=== PATIENT | male | born 1980 | race African-American/Black ===

== ENCOUNTER 2020-05-13 21:24 | Inpatient (IN) | payer SELFPAY ==
[~2020-05-13] VITALS: Ht 177.8 cm; Wt 90.7 kg
[2020-05-13 22:19] LABS: BASO # 0.1 x10^3/uL (0.0-0.2); BASO % 1 % (0-3); EOS # 0.2 x10^3/uL (0.0-0.7); EOS % 3 % (0-3); HEMOGLOBIN 13.8 g/dL (13.0-17.5); LYMPH # 2.3 x10^3/uL (1.0-4.8); LYMPH % 28 % (24-48); MEAN CORPUSCULAR HEMOGLOBIN 28 pg (25-35); MEAN CORPUSCULAR HGB CONC 34 g/dL (31-37); MEAN CORPUSCULAR VOLUME 83 fL (79-100); MONO # 0.7 x10^3/uL (0.0-1.1); MONO % 9 % (0-9); NEUT # 4.9 x10^3/uL (1.8-7.7); NEUT % 60 % (31-73); PLATELET COUNT 330 x10^3/uL (140-400); RED BLOOD COUNT 4.94 x10^6/uL (4.30-5.70); RED CELL DISTRIBUTION WIDTH 13.9 % (11.5-14.5); WHITE BLOOD COUNT 8.1 x10^3/uL (4.0-11.0)
[2020-05-13 22:26] LABS: CALCIUM 9.6 mg/dL (8.5-10.1); CREATININE 1.4 mg/dL (0.7-1.3); GFR 67.6; POTASSIUM 3.8 mmol/L (3.5-5.1)
[2020-05-13 22:32] LABS: ALBUMIN 3.9 g/dL (3.4-5.0); TOTAL BILIRUBIN 0.2 mg/dL (0.2-1.0); TOTAL PROTEIN 7.7 g/dL (6.4-8.2)
[2020-05-13] MEDS ORDERED: MORPHINE SULFATE 4 MG/ML VIAL. ONE (22:55)
[2020-05-13] MEDS ORDERED: MORPHINE SULFATE 4 MG/ML VIAL. IV ONE (23:30)
--- NOTE | 2020-05-13 23:45 | PHYS DOC ---
Past Medical History Past Medical History: Asthma, Hypertension Additional Past Medical Histor: DDD Past Surgical History: Other Additional Past Surgical Histo: L5-S1, CERVICAL FUSION Smoking Status: Never Smoker Alcohol Use: None General Adult EDM: Chief Complaint: BACK PAIN OR INJURY HPI: HPI: Patient is a 39-year-old male past medical history of degenerative disc disease presents with a chief complaint of back pain. Patient states over the last several days he has had pain in his lumbar region that is become increasingly worse. Patient states he started to have bilateral lower extremity weakness -- left leg greater than his right. Patient states he has associated numbness and tingling with abnormal sensation in his bilateral legs and groin. Patient states today he urinated on himself 2 times today. Patient denies any loss of stool. Patient states back surgery in Aug 2017 at [facility]. He states postoperatively he has similar symptoms with require 1 month hospitalization.l. On exam patient appears to be having difficulty lifting and hold both his legs in the air. Patients left leg appears to be weaker than right. Patient's back pain is exacerbated with lifting his legs up in the air. Rectal exam done and tone is intact. Patient denies any IV Drug use. Patient presented by POV. He drove himself here. States he lives by [place] but was on his way home from a job interview when symptoms became worse. Review of Systems: Review of Systems: Constitutional: Denies fever or chills. [] Eyes: Denies change in visual acuity. [] HENT: Denies nasal congestion or sore throat. [] Respiratory: Denies cough or shortness of breath. [] Cardiovascular: Denies chest pain or edema. [] GI: Denies abdominal pain, nausea, vomiting, bloody stools or diarrhea. [] : Denies dysuria. [] Musculoskeletal: positive back pain Integument: Denies rash. [] Neurologic: Denies headache, positive lower extremity weakness, positive paresthesia. Endocrine: Denies polyuria or polydipsia. [] Lymphatic: Denies swollen glands. [] Psychiatric: Denies depression or anxiety. [] Heart Score: Risk Factors: Risk Factors: DM, Current or recent (<one month) smoker, HTN, HLP, family history of CAD, obesity. Risk Scores: Score 0 - 3: 2.5% MACE over next 6 weeks - Discharge Home Score 4 - 6: 20.3% MACE over next 6 weeks - Admit for Clinical Observation Score 7 - 10: 72.7% MACE over next 6 weeks - Early Invasive Strategies Current Medications: Current Medications Medications (Trade) Dose Ordered Sig/Robbin Start Time Stop Time Status Last Admin Dose Admin Lorazepam (Ativan Inj) 2 mg STK-MED ONCE 05/13/20 23:21 05/13/20 23:21 DC Morphine Sulfate (Morphine Sulfate) 4 mg STK-MED ONCE 05/13/20 22:55 05/13/20 22:55 DC Allergies: Allergies: Allergies Coded Allergies Type Severity Reaction Last Updated Verified levofloxacin Allergy Severe THROAT SWELLING 05/13/20 Yes ketorolac Allergy Intermediate Hives 05/13/20 Yes Physical Exam: PE: Constitutional: Well developed, well nourished, no acute distress, non-toxic appearance. [] HENT: Normocephalic, atraumatic, bilateral external ears normal, oropharynx moist, no oral exudates, nose normal. [] Eyes: PERRLA, EOMI, conjunctiva normal, no discharge. [] Neck: Normal range of motion, no tenderness, supple, no stridor. [] Cardiovascular:Heart rate regular rhythm, no murmur [] Lungs & Thorax: Bilateral breath sounds clear to auscultation [] Abdomen: Bowel sounds normal, soft, no tenderness, no masses, no pulsatile masses. [] Skin: Warm, dry, no erythema, no rash. [] Back: tenderness l4-l5 no step off or deformities, no CVA tenderness. [] Extremities: No tenderness, no cyanosis, no clubbing, ROM intact, no edema. [] Neurologic: Alert and oriented X 3,rectal exam normal [] Psychologic: Affect normal, judgement normal, mood normal. [] Current Patient Data: Labs: Laboratory Tests Test 05/13/20 21:35 White Blood Count 8.1 x10^3/uL (4.0-11.0) Red Blood Count 4.94 x10^6/uL (4.30-5.70) Hemoglobin 13.8 g/dL (13.0-17.5) Hematocrit 41.0 % (39.0-53.0) Mean Corpuscular Volume 83 fL (79-100) Mean Corpuscular Hemoglobin 28 pg (25-35) Mean Corpuscular Hemoglobin Concent 34 g/dL (31-37) Red Cell Distribution Width 13.9 % (11.5-14.5) Platelet Count 330 x10^3/uL (140-400) Neutrophils (%) (Auto) 60 % (31-73) Lymphocytes (%) (Auto) 28 % (24-48) Monocytes (%) (Auto) 9 % (0-9) Eosinophils (%) (Auto) 3 % (0-3) Basophils (%) (Auto) 1 % (0-3) Neutrophils # (Auto) 4.9 x10^3/uL (1.8-7.7) Lymphocytes # (Auto) 2.3 x10^3/uL (1.0-4.8) Monocytes # (Auto) 0.7 x10^3/uL (0.0-1.1) Eosinophils # (Auto) 0.2 x10^3/uL (0.0-0.7) Basophils # (Auto) 0.1 x10^3/uL (0.0-0.2) Sodium Level 142 mmol/L (136-145) Potassium Level 3.8 mmol/L (3.5-5.1) Chloride Level 105 mmol/L (98-107) Carbon Dioxide Level 28 mmol/L (21-32) Anion Gap 9 (6-14) Blood Urea Nitrogen 21 mg/dL (8-26) Creatinine 1.4 mg/dL (0.7-1.3) H Estimated GFR (Cockcroft-Gault) 67.6 BUN/Creatinine Ratio 15 (6-20) Glucose Level 103 mg/dL (70-99) H Calcium Level 9.6 mg/dL (8.5-10.1) Total Bilirubin 0.2 mg/dL (0.2-1.0) Aspartate Amino Transferase (AST) 28 U/L (15-37) Alanine Aminotransferase (ALT) 51 U/L (16-63) Alkaline Phosphatase 119 U/L (46-116) H C-Reactive Protein, Quantitative 3.9 mg/L (0-3.3) H Total Protein 7.7 g/dL (6.4-8.2) Albumin 3.9 g/dL (3.4-5.0) Albumin/Globulin Ratio 1.0 (1.0-1.7) Laboratory Tests 05/13/20 21:35 Laboratory Tests 05/13/20 21:35 Vital Signs: Vital Signs Date Time Temp Pulse Resp B/P (MAP) Pulse Ox O2 Delivery O2 Flow Rate FiO2 05/13/20 21:33 99.1 100 24 187/128 (147) 97 Room Air 99.1 EKG: EKG: [] Radiology/Procedures: Radiology/Procedures: [] Impression: IMPRESSION: 1. No acute fracture or malalignment of the thoracic or lumbar spine. 2. There is no high-grade central canal stenosis or neural foraminal narrowing. 3. There is no abnormal intrathecal enhancement. Electronically signed by: Pepe Duong MD (05/14/2020 1:18 AM) [facility] Course & Med Decision Making: Course & Med Decision Making Pertinent Labs and Imaging studies reviewed. (See chart for details) [] Patient was evaluated for chief complaint. Work up consisted of labs and MRI. Results reviewed and discussed with patient. Pain treated with multiple dose of morphine with some improvement. During MRI patient requested ativan. Post workup-- Nursing attempted to ambulate patient. Patient walked unassisted but states he felt like his legs were going to give ou t. After walking state pain is 10/10. Patient admitted to hospitalist. Dajuan Disclaimer: Dajuan Disclaimer: This electronic medical record was generated, in whole or in part, using a voice recognition dictation system. Departure Departure Impression: Primary Impression: Intractable back pain Additional Impression: Paresthesia Disposition: ADMITTED INPATIENT Condition: STABLE Referrals: NO PCP (PCP) Justicifation of Admission Dx: Justifications for Admission: Justification of Admission Dx: Yes Comments: Intractable Back Pain, Paresthesia CYNTHIA MCKINNEY I DO May 13, 2020 23:45
[2020-05-14] VITALS (7 sets, daily range): BP systolic 136–184; BP diastolic 85–109
[2020-05-14] MEDS ORDERED: GADOTERATE 7.5 MMOL/15ML VIAL. IVP ONE (00:30)
--- NOTE | 2020-05-14 01:21 | RAD ---
THORACIC SPINE WO/W CONTRAST, LUMBAR SPINE WO/W CONTRAST Clinical Indication: Reason: back pain saddle anesthesia / Comparison: None. TECHNIQUE: Routine multiplanar multiple pulse sequence images of the thoracic and lumbar spine are obtained before and after 18 cc of Dotarem IV contrast. Findings: Only imaged in sagittal plane on the [employer] counting sequence there is susceptibility artifact in the anterior cervical spine at C4-C7 that may be due to ACDF hardware. There is a spondylitic disc of C6/C7 resulting in some degree of central canal stenosis. In the thoracic spine the vertebral body height and alignment are maintained. No bone marrow edema is identified. There is disc desiccation in the midthoracic spine. The T2 signal and caliber of the thoracic cord are normal. There is no suspicious T1 marrow signal abnormality. There is no significant central canal stenosis of the thoracic spine. The neural foramina are adequate. There is no abnormal postcontrast enhancement. There is mild grade 1 retrolisthesis of L5 on S1. The alignment is otherwise maintained. There is no loss of vertebral body height. There is posterior fusion decompression of L5-S1. There is disc space narrowing and disc desiccation and reactive endplate changes of L5/S1. Other disc spaces are maintained and the discs are hydrated. Question tiny bone island of the L1 vertebral body. There is no suspicious T1 marrow signal abnormality. Conus medullaris is normal in signal intensity and appearance, terminates at the level of L1. L1/L2: Unremarkable. L2/L3: No significant spondylitic disc. There is moderate facet hypertrophy. There is ligamentum flavum redundancy. The central canal and neural foramina are patent. L3/L4: There is minimal broad-based posterior disc bulge. There is moderate facet hypertrophy and ligamentum flavum redundancy. Prominent posterior epidural fat. Mild central canal stenosis. There is mild left and no significant right neural foraminal narrowing. L4/L5: There is small broad-based posterior disc bulge and moderate facet hypertrophy and ligamentum flavum redundancy. There is narrowing of the right lateral recess. There is mild central canal stenosis. Mild bilateral neural foraminal narrowing. L5/S1: There is posterior decompression. The central canal is widely patent. There is no significant neural foraminal narrowing. Limited visualization of the retroperitoneum is unremarkable. There is no abnormal postcontrast enhancement. IMPRESSION: 1. No acute fracture or malalignment of the thoracic or lumbar spine. 2. There is no high-grade central canal stenosis or neural foraminal narrowing. 3. There is no abnormal intrathecal enhancement. Electronically signed by: Pepe Doung MD (05/14/2020 1:18 AM) [facility]
[2020-05-14] MEDS ORDERED: MORPHINE SULFATE 2 MG/ML VIAL. IV ONE (01:30)
[2020-05-14] MEDS ORDERED: ONDANSETRON PF 4 MG/2 ML VIAL. IV PRN (02:30)
--- NOTE | 2020-05-14 03:30 | NUR ---
PT ARRIVED TO ROOM 244 VIA WC ACCOMPANIED BY ER STAFF. ALERT AND ORIENTED X4, C/O SOME BACK PAIN WILL MEDICATE PER ORDER. ADMISSION PACKET GIVEN AND ASSESSMENT AND HISTORY COMPLETED. CALL LIGHT IN PLACE WILL CONT TO MONITOR PT SAFETY AND STATUS. PMRN
[2020-05-14] MEDS: MORPHINE SULFATE 2 MG/ML VIAL. IV PRN ×5 (04:12→21:06)
[2020-05-14] MEDS ORDERED: AMLO10TA4 PO (05:19)
[2020-05-14] MEDS ORDERED: GABA800T5 PO ×2 (05:19)
[2020-05-14] MEDS ORDERED: DEXAMETHASONE SOD PHOS 4 MG/ML VIAL IVP ONE (10:15)
--- NOTE | 2020-05-14 10:24 | PDOC1 ---
History and Physical Date of Admission Date of Admission 05/14/2020 Identification/Chief Complaint Chief Complaint My back hurts Source Source: Chart review, Patient History of Present Illness History of Present Illness Patient is a 39-year-old gentleman with past medical history of chronic back pain who already has had cervical and lumbar fusion who was in his usual state of health until the day of his admission. Patient started experiencing worsening discomfort of his back with radiation down his legs and the sciatica type of fashion. He also suffers from paresthesias which got worse over the course of the day and he also lost continence of urine reason why he decided to come to the emergency department for further evaluation and treatment. The patient had imaging studies done in the ER with no evidence of cauda equina syndrome. The patient at the present time is laying in bed in no acute distress. The patient is able to move all his extremities he does have sensory deficits according to him him patient does retract to painful stimuli The patient denies any fever chills no recent sick contacts no recent upper re spiratory tract infections no contacts with COVID-19 patients. Patient has not traveled outside the country. He does not endorse night sweats no weight loss either. Patient currently takes gabapentin for his discomfort he is allergic to Toradol which gives him hives but he has tried ibuprofen and naproxen in the past. Every so often he gets prescribed narcotic medications but he is not currently on a narcotic plan. 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 Plan of care has been explained detail all of his concerns addressed to the best of my ability Past Medical History Cardiovascular: HTN Past Surgical History Past Surgical History: Cholecystectomy, Other (cervical and lumbar fusion ) Current Medications Current Medications Current Medications Medications (Trade) Dose Ordered Sig/Robbin Start Time Stop Time Status Last Admin Dose Admin Amlodipine Besylate (Norvasc) 10 mg DAILY 05/15/20 09:00 UNV Dexamethasone Sodium Phosphate (Decadron) 4 mg 1X ONCE 05/14/20 10:15 05/14/20 10:16 UNV Duloxetine HCl (Cymbalta) 20 mg DAILY 05/15/20 09:00 UNV Gadoterate Meglumine (Dotarem) 18 ml 1X ONCE 05/14/20 00:30 05/14/20 00:31 DC 05/14/20 00:31 18 ML Lorazepam (Ativan Inj) 2 mg STK-MED ONCE 05/13/20 23:21 05/13/20 23:21 DC Methocarbamol (Robaxin) 1,500 mg Q8HRS PRN 05/14/20 10:15 UNV Morphine Sulfate (Morphine Sulfate) 2 mg PRN Q2HR PRN 05/14/20 02:30 05/15/20 02:29 05/14/20 07:46 2 MG Non-Formulary Medication (Gabapentin ) 400 mg HS 05/14/20 21:00 UNV Ondansetron HCl (Zofran) 4 mg PRN Q8HRS PRN 05/14/20 02:30 05/15/20 02:29 Allergies Allergies Allergies Coded Allergies Type Severity Reaction Last Updated Verified levofloxacin Allergy Severe THROAT SWELLING 05/13/20 Yes ketorolac Allergy Intermediate Hives 05/13/20 Yes ROS Review of System CONSTITUTIONAL: No fever or chills EYES: No recent changes SKIN: No rash or itching CARDIOVASCULAR: No chest pain, syncope, palpitations, or edema RESPIRATORY: No SOB or cough GASTROINTESTINAL: No nausea, vomiting or abdominal pain NEUROLOGICAL: No headaches or weakness ENDOCRINE: No cold or heat intolerance GENITOURINARY: No urgency or frequency of urination MUSCULOSKELETAL: No back pain or joint pain LYMPHATICS: No enlarged lymph nodes PSYCHIATRIC: No anxiety or depression Physical Exam Physical Exam GEN.: No apparent distress. Alert and oriented. HEENT: Head is normocephalic, atraumatic NECK: Supple. LUNGS: Clear to auscultation. HEART: RRR, S1, S2 present. Peripheral pulses intact ABDOMEN: Soft, nontender. Positive bowel sounds. EXTREMITIES: Without any cyanosis. NEUROLOGIC: Normal speech, normal tone PSYCHIATRIC: Normal affect, normal mood. SKIN: No ulcerations Vitals Vitals Vital Signs Date Time Temp Pulse Resp B/P (MAP) Pulse Ox O2 Delivery O2 Flow Rate FiO2 05/14/20 07:46 Room Air 05/14/20 07:00 98.5 65 20 147/105 (119) 97 98.5 Labs Labs Laboratory Tests Test 05/13/20 21:35 White Blood Count 8.1 x10^3/uL (4.0-11.0) Red Blood Count 4.94 x10^6/uL (4.30-5.70) Hemoglobin 13.8 g/dL (13.0-17.5) Hematocrit 41.0 % (39.0-53.0) Mean Corpuscular Volume 83 fL (79-100) Mean Corpuscular Hemoglobin 28 pg (25-35) Mean Corpuscular Hemoglobin Concent 34 g/dL (31-37) Red Cell Distribution Width 13.9 % (11.5-14.5) Platelet Count 330 x10^3/uL (140-400) Neutrophils (%) (Auto) 60 % (31-73) Lymphocytes (%) (Auto) 28 % (24-48) Monocytes (%) (Auto) 9 % (0-9) Eosinophils (%) (Auto) 3 % (0-3) Basophils (%) (Auto) 1 % (0-3) Neutrophils # (Auto) 4.9 x10^3/uL (1.8-7.7) Lymphocytes # (Auto) 2.3 x10^3/uL (1.0-4.8) Monocytes # (Auto) 0.7 x10^3/uL (0.0-1.1) Eosinophils # (Auto) 0.2 x10^3/uL (0.0-0.7) Basophils # (Auto) 0.1 x10^3/uL (0.0-0.2) Sodium Level 142 mmol/L (136-145) Potassium Level 3.8 mmol/L (3.5-5.1) Chloride Level 105 mmol/L (98-107) Carbon Dioxide Level 28 mmol/L (21-32) Anion Gap 9 (6-14) Blood Urea Nitrogen 21 mg/dL (8-26) Creatinine 1.4 mg/dL (0.7-1.3) Estimated GFR (Cockcroft-Gault) 67.6 BUN/Creatinine Ratio 15 (6-20) Glucose Level 103 mg/dL (70-99) Calcium Level 9.6 mg/dL (8.5-10.1) Total Bilirubin 0.2 mg/dL (0.2-1.0) Aspartate Amino Transf (AST/SGOT) 28 U/L (15-37) Alanine Aminotransferase (ALT/SGPT) 51 U/L (16-63) Alkaline Phosphatase 119 U/L (46-116) C-Reactive Protein, Quantitative 3.9 mg/L (0-3.3) Total Protein 7.7 g/dL (6.4-8.2) Albumin 3.9 g/dL (3.4-5.0) Albumin/Globulin Ratio 1.0 (1.0-1.7) Laboratory Tests Test 05/13/20 21:35 White Blood Count 8.1 x10^3/uL (4.0-11.0) Red Blood Count 4.94 x10^6/uL (4.30-5.70) Hemoglobin 13.8 g/dL (13.0-17.5) Hematocrit 41.0 % (39.0-53.0) Mean Corpuscular Volume 83 fL (79-100) Mean Corpuscular Hemoglobin 28 pg (25-35) Mean Corpuscular Hemoglobin Concent 34 g/dL (31-37) Red Cell Distribution Width 13.9 % (11.5-14.5) Platelet Count 330 x10^3/uL (140-400) Neutrophils (%) (Auto) 60 % (31-73) Lymphocytes (%) (Auto) 28 % (24-48) Monocytes (%) (Auto) 9 % (0-9) Eosinophils (%) (Auto) 3 % (0-3) Basophils (%) (Auto) 1 % (0-3) Neutrophils # (Auto) 4.9 x10^3/uL (1.8-7.7) Lymphocytes # (Auto) 2.3 x10^3/uL (1.0-4.8) Monocytes # (Auto) 0.7 x10^3/uL (0.0-1.1) Eosinophils # (Auto) 0.2 x10^3/uL (0.0-0.7) Basophils # (Auto) 0.1 x10^3/uL (0.0-0.2) Sodium Level 142 mmol/L (136-145) Potassium Level 3.8 mmol/L (3.5-5.1) Chloride Level 105 mmol/L (98-107) Carbon Dioxide Level 28 mmol/L (21-32) Anion Gap 9 (6-14) Blood Urea Nitrogen 21 mg/dL (8-26) Creatinine 1.4 mg/dL (0.7-1.3) Estimated GFR (Cockcroft-Gault) 67.6 BUN/Creatinine Ratio 15 (6-20) Glucose Level 103 mg/dL (70-99) Calcium Level 9.6 mg/dL (8.5-10.1) Total Bilirubin 0.2 mg/dL (0.2-1.0) Aspartate Amino Transf (AST/SGOT) 28 U/L (15-37) Alanine Aminotransferase (ALT/SGPT) 51 U/L (16-63) Alkaline Phosphatase 119 U/L (46-116) C-Reactive Protein, Quantitative 3.9 mg/L (0-3.3) Total Protein 7.7 g/dL (6.4-8.2) Albumin 3.9 g/dL (3.4-5.0) Albumin/Globulin Ratio 1.0 (1.0-1.7) Images Images IMAGING REPORT Signed PATIENT: BARBIE ORTIZ ACCOUNT: [id number] : 1980 LOCATION: ER AGE: 39 SEX: M EXAM STATUS: REG ER ORD. PHYSICIAN: CYNTHIA MCKINNEY DO REASON: back pain saddle anesthesia, IF CRITICAL [phone] PROCEDURE: LUMBAR SPINE WO/W CONTRAST THORACIC SPINE WO/W CONTRAST, LUMBAR SPINE WO/W CONTRAST Clinical Indication: Reason: back pain saddle anesthesia / Comparison: None. TECHNIQUE: Routine multiplanar multiple pulse sequence images of the thoracic and lumbar spine are obtained before and after 18 cc of Dotarem IV contrast. Findings: Only imaged in sagittal plane on the outsole splicer counting sequence there is susceptibility artifact in the anterior cervical spine at C4-C7 that may be due to ACDF hardware. There is a spondylitic disc of C6/C7 resulting in some degree of central canal stenosis. In the thoracic spine the vertebral body height and alignment are maintained. No bone marrow edema is identified. There is disc desiccation in the midthoracic spine. The T2 signal and caliber of the thoracic cord are normal. There is no suspicious T1 marrow signal abnormality. There is no significant central canal stenosis of the thoracic spine. The neural foramina are adequate. There is no abnormal postcontrast enhancement. There is mild grade 1 retrolisthesis of L5 on S1. The alignment is otherwise maintained. There is no loss of vertebral body height. There is posterior fusion decompression of L5-S1. There is disc space narrowing and disc desiccation and reactive endplate changes of L5/S1. Other disc spaces are maintained and the discs are hydrated. Question tiny bone island of the L1 vertebral body. There is no suspicious T1 marrow signal abnormality. Conus medullaris is normal in signal intensity and appearance, terminates at the level of L1. L1/L2: Unremarkable. L2/L3: No significant spondylitic disc. There is moderate facet hypertrophy. There is ligamentum flavum redundancy. The central canal and neural foramina are patent. L3/L4: There is minimal broad-based posterior disc bulge. There is moderate facet hypertrophy and ligamentum flavum redundancy. Prominent posterior epidural fat. Mild central canal stenosis. There is mild left and no significant right neural foraminal narrowing. L4/L5: There is small broad-based posterior disc bulge and moderate facet hypertrophy and ligamentum flavum redundancy. There is narrowing of the right lateral recess. There is mild central canal stenosis. Mild bilateral neural foraminal narrowing. L5/S1: There is posterior decompression. The central canal is widely patent. There is no significant neural foraminal narrowing. Limited visualization of the retroperitoneum is unremarkable. There is no abnormal postcontrast enhancement. IMPRESSION: 1. No acute fracture or malalignment of the thoracic or lumbar spine. 2. There is no high-grade central canal stenosis or neural foraminal narrowing. 3. There is no abnormal intrathecal enhancement. Electronically signed by: Pepe Duong MD (05/14/2020 1:18 AM) [facility] DICTATED and SIGNED BY: PEPE DUONG MD DATE: 05/14/20 0118 VTE Prophylaxis Ordered VTE Prophylaxis Devices: Yes VTE Pharmacological Prophylaxi: No Assessment/Plan Assessment/Plan Intractable back pain Hypertension Paresthesias. Plan: We will give 1 dose of Decadron Muscle relaxant Tylenol for pain Patient will not benefit from narcotic therapy moving forward We will have physical therapy evaluate for range of motion He does not have evidence of enthesitis DVT prophylaxis with SCDs Justifications for Admission Other Justification TAVIA IRIZARRY MD May 14, 2020 10:24
[2020-05-14] MEDS ORDERED: ACETAMINOPHEN 325 MG TABLET. PO PRN (10:45)
[2020-05-14] MEDS ORDERED: ACETAMINOPHEN 500 MG TABLET PO ONE (10:45)
[2020-05-14] MEDS: DULoxetine HCL 20 MG CAPSULE.DR PO SCH (10:52)
[2020-05-14] MEDS: amLODIPine BESYLATE 10 MG TABLET PO SCH (10:52)
[2020-05-14] MEDS: GABAPENTIN 300 MG CAPSULE. PO SCH ×2 (10:52→15:38)
--- NOTE | 2020-05-14 12:58 | NUR ---
SS following for discharge planning. SS reviewed pt chart and discussed with pt RN. Pt is from home and is currently on room air. PT ordered. Pt self pay. SS will continue to follow for discharge planning.
[2020-05-14] MEDS ORDERED: GABAPENTIN 400 MG CAPSULE. PO SCH (21:00)
[2020-05-14] MEDS: METHOCARBAMOL 750 MG TABLET PO PRN (21:05)
[2020-05-15] MEDS: MORPHINE SULFATE 2 MG/ML VIAL. IV PRN (01:49)
[2020-05-15 02:54] VITALS: BP 154/110
[2020-05-15] MEDS ORDERED: MORPHINE SULFATE 2 MG/ML VIAL. IV PRN (06:00)
[2020-05-15 07:00] VITALS: BP 135/87
[2020-05-15 07:38] LABS: BASO # 0.1 x10^3/uL (0.0-0.2); BASO % 1 % (0-3); EOS % 0 % (0-3); HEMATOCRIT 43.4 % (39.0-53.0); HEMOGLOBIN 14.3 g/dL (13.0-17.5); LYMPH # 1.8 x10^3/uL (1.0-4.8); LYMPH % 16 % (24-48); MEAN CORPUSCULAR HEMOGLOBIN 27 pg (25-35); MEAN CORPUSCULAR HGB CONC 33 g/dL (31-37); MEAN CORPUSCULAR VOLUME 83 fL (79-100); MONO # 0.6 x10^3/uL (0.0-1.1); MONO % 5 % (0-9); NEUT # 8.9 x10^3/uL (1.8-7.7); NEUT % 78 % (31-73); PLATELET COUNT 346 x10^3/uL (140-400); RED BLOOD COUNT 5.22 x10^6/uL (4.30-5.70); RED CELL DISTRIBUTION WIDTH 14.2 % (11.5-14.5); WHITE BLOOD COUNT 11.3 x10^3/uL (4.0-11.0)
[2020-05-15 08:07] LABS: CALCIUM 9.6 mg/dL (8.5-10.1); CREATININE 1.1 mg/dL (0.7-1.3); GFR 89.3; POTASSIUM 3.6 mmol/L (3.5-5.1)
[2020-05-15] MEDS: METHOCARBAMOL 750 MG TABLET PO PRN (08:53)
[2020-05-15] MEDS: amLODIPine BESYLATE 10 MG TABLET PO SCH (08:53)
[2020-05-15] MEDS: DULoxetine HCL 20 MG CAPSULE.DR PO SCH (08:53)
[2020-05-15] MEDS: GABAPENTIN 300 MG CAPSULE. PO SCH (08:54)
[2020-05-15] MEDS ORDERED: TIZA2CAP PO (09:43)
[2020-05-15] MEDS ORDERED: DULO20CA PO (09:43)
[2020-05-15] MEDS ORDERED: MELO7.5T5 PO (09:43)
[2020-05-15] MEDS ORDERED: PRED50TA PO (09:45)
[2020-05-15] MEDS ORDERED: MELOXICAM 7.5 MG TABLET PO SCH (09:45)
--- NOTE | 2020-05-15 09:51 | PDOC3 ---
Discharge Summary Visit Information Date of Admission: May 14, 2020 Date of Discharge: May 15, 2020 Admitting Diagnosis Comment: Intractable back pain Hypertension Paresthesias. 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 Brief Hospital Course Allergies Allergies Coded Allergies Type Severity Reaction Last Updated Verified levofloxacin Allergy Severe THROAT SWELLING 05/13/20 Yes ketorolac Allergy Intermediate Hives 05/13/20 Yes Vital Signs Vital Signs Date Time Temp Pulse Resp B/P (MAP) Pulse Ox O2 Delivery O2 Flow Rate FiO2 05/15/20 08:53 80 135/87 05/15/20 07:00 98.2 20 94 Room Air 98.2 Lab Results Laboratory Tests Test 05/13/20 21:35 05/15/20 07:05 White Blood Count 8.1 x10^3/uL (4.0-11.0) 11.3 x10^3/uL (4.0-11.0) Red Blood Count 4.94 x10^6/uL (4.30-5.70) 5.22 x10^6/uL (4.30-5.70) Hemoglobin 13.8 g/dL (13.0-17.5) 14.3 g/dL (13.0-17.5) Hematocrit 41.0 % (39.0-53.0) 43.4 % (39.0-53.0) Mean Corpuscular Volume 83 fL (79-100) 83 fL (79-100) Mean Corpuscular Hemoglobin 28 pg (25-35) 27 pg (25-35) Mean Corpuscular Hemoglobin Concent 34 g/dL (31-37) 33 g/dL (31-37) Red Cell Distribution Width 13.9 % (11.5-14.5) 14.2 % (11.5-14.5) Platelet Count 330 x10^3/uL (140-400) 346 x10^3/uL (140-400) Neutrophils (%) (Auto) 60 % (31-73) 78 % (31-73) Lymphocytes (%) (Auto) 28 % (24-48) 16 % (24-48) Monocytes (%) (Auto) 9 % (0-9) 5 % (0-9) Eosinophils (%) (Auto) 3 % (0-3) 0 % (0-3) Basophils (%) (Auto) 1 % (0-3) 1 % (0-3) Neutrophils # (Auto) 4.9 x10^3/uL (1.8-7.7) 8.9 x10^3/uL (1.8-7.7) Lymphocytes # (Auto) 2.3 x10^3/uL (1.0-4.8) 1.8 x10^3/uL (1.0-4.8) Monocytes # (Auto) 0.7 x10^3/uL (0.0-1.1) 0.6 x10^3/uL (0.0-1.1) Eosinophils # (Auto) 0.2 x10^3/uL (0.0-0.7) 0.0 x10^3/uL (0.0-0.7) Basophils # (Auto) 0.1 x10^3/uL (0.0-0.2) 0.1 x10^3/uL (0.0-0.2) Sodium Level 142 mmol/L (136-145) 140 mmol/L (136-145) Potassium Level 3.8 mmol/L (3.5-5.1) 3.6 mmol/L (3.5-5.1) Chloride Level 105 mmol/L (98-107) 105 mmol/L (98-107) Carbon Dioxide Level 28 mmol/L (21-32) 27 mmol/L (21-32) Anion Gap 9 (6-14) 8 (6-14) Blood Urea Nitrogen 21 mg/dL (8-26) 23 mg/dL (8-26) Creatinine 1.4 mg/dL (0.7-1.3) 1.1 mg/dL (0.7-1.3) Estimated GFR (Cockcroft-Gault) 67.6 89.3 BUN/Creatinine Ratio 15 (6-20) Glucose Level 103 mg/dL (70-99) 102 mg/dL (70-99) Calcium Level 9.6 mg/dL (8.5-10.1) 9.6 mg/dL (8.5-10.1) Total Bilirubin 0.2 mg/dL (0.2-1.0) Aspartate Amino Transf (AST/SGOT) 28 U/L (15-37) Alanine Aminotransferase (ALT/SGPT) 51 U/L (16-63) Alkaline Phosphatase 119 U/L (46-116) C-Reactive Protein, Quantitative 3.9 mg/L (0-3.3) Total Protein 7.7 g/dL (6.4-8.2) Albumin 3.9 g/dL (3.4-5.0) Albumin/Globulin Ratio 1.0 (1.0-1.7) Laboratory Tests Test 05/15/20 07:05 White Blood Count 11.3 x10^3/uL (4.0-11.0) Red Blood Count 5.22 x10^6/uL (4.30-5.70) Hemoglobin 14.3 g/dL (13.0-17.5) Hematocrit 43.4 % (39.0-53.0) Mean Corpuscular Volume 83 fL (79-100) Mean Corpuscular Hemoglobin 27 pg (25-35) Mean Corpuscular Hemoglobin Concent 33 g/dL (31-37) Red Cell Distribution Width 14.2 % (11.5-14.5) Platelet Count 346 x10^3/uL (140-400) Neutrophils (%) (Auto) 78 % (31-73) Lymphocytes (%) (Auto) 16 % (24-48) Monocytes (%) (Auto) 5 % (0-9) Eosinophils (%) (Auto) 0 % (0-3) Basophils (%) (Auto) 1 % (0-3) Neutrophils # (Auto) 8.9 x10^3/uL (1.8-7.7) Lymphocytes # (Auto) 1.8 x10^3/uL (1.0-4.8) Monocytes # (Auto) 0.6 x10^3/uL (0.0-1.1) Eosinophils # (Auto) 0.0 x10^3/uL (0.0-0.7) Basophils # (Auto) 0.1 x10^3/uL (0.0-0.2) Sodium Level 140 mmol/L (136-145) Potassium Level 3.6 mmol/L (3.5-5.1) Chloride Level 105 mmol/L (98-107) Carbon Dioxide Level 27 mmol/L (21-32) Anion Gap 8 (6-14) Blood Urea Nitrogen 23 mg/dL (8-26) Creatinine 1.1 mg/dL (0.7-1.3) Estimated GFR (Cockcroft-Gault) 89.3 Glucose Level 102 mg/dL (70-99) Calcium Level 9.6 mg/dL (8.5-10.1) Brief Hospital Course History of Present Illness Patient is a 39-year-old gentleman with past medical history of chronic back pain who already has had cervical and lumbar fusion who was in his usual state of health until the day of his admission. Patient started experiencing worsening discomfort of his back with radiation down his legs and the sciatica type of fashion. He also suffers from paresthesias which got worse over the course of the day and he also lost continence of urine reason why he decided to come to the emergency department for further evaluation and treatment. The patient had imaging studies done in the ER with no evidence of cauda equina syndrome. The patient at the present time is laying in bed in no acute distress. The patient is able to move all his extremities he does have sensory deficits according to him him patient does retract to painful stimuli The patient denies any fever chills no recent sick contacts no recent upper respiratory tract infections no contacts with COVID-19 patients. Patient has not traveled outside the country. He does not endorse night sweats no weight loss either. Patient currently takes gabapentin for his discomfort he is allergic to Toradol which gives him hives but he has tried ibuprofen and naproxen in the past. Every so often he gets prescribed narcotic medications bu t he is not currently on a narcotic plan. 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 Plan of care has been explained detail all of his concerns addressed to the best of my ability Patient did not present any acute events during his brief hospital stay. He was seen in consultation by physical therapy who recommended therapies 3 times a week for at least 2 weeks. The patient was given also resources prior to discharge, as far as medical treatment plan for his back pain moving forward I have started the patient on Cymbalta give him a short course of prednisone for anti-inflammatory effect he says that he has tried naproxen in the past and ibuprofen has not had resolution of his symptoms he does give a history of allergies to ketorolac which seems on in light of him having been able to take other NSAIDs. I have given him Mobic prescription in case he will benefit from it as well. I change his anti-inflammatory from Robaxin during his hospital stay to tizanidine in an effort to provide him relief moving forward. He is in no acute distress during my interview seems kind of teary-eyed and seemed to be quite interested in having narcotics prescribed to him which I have explained are not indicated in his type of pain. Signs and symptoms of concern and when to seek medical attention was discussed with the patient prior to discharge reassurance was provided discussed all his laboratory data and imaging studies again full extent Encouraged to establish care with a primary care physician and other interventions like corinne chi were discussed prior to discharge Assessment Assessment IMAGING REPORT Signed PATIENT: BARBIE ORTIZ ACCOUNT: [id number] : 1980 LOCATION: ER AGE: 39 SEX: M EXAM STATUS: REG ER ORD. PHYSICIAN: CYNTHIA MCKINNEY DO REASON: back pain saddle anesthesia, IF CRITICAL [phone] PROCEDURE: LUMBAR SPINE WO/W CONTRAST THORACIC SPINE WO/W CONTRAST, LUMBAR SPINE WO/W CONTRAST Clinical Indication: Reason: back pain saddle anesthesia / Comparison: None. TECHNIQUE: Routine multiplanar multiple pulse sequence images of the thoracic and lumbar spine are obtained before and after 18 cc of Dotarem IV contrast. Findings: Only imaged in sagittal plane on the drywall stripper helper counting sequence there is susceptibility artifact in the anterior cervical spine at C4-C7 that may be due to ACDF hardware. There is a spondylitic disc of C6/C7 resulting in some degree of central canal stenosis. In the thoracic spine the vertebral body height and alignment are maintained. No bone marrow edema is identified. There is disc desiccation in the midthoracic spine. The T2 signal and caliber of the thoracic cord are normal. There is no suspicious T1 marrow signal abnormality. There is no significant central canal stenosis of the thoracic spine. The neural foramina are adequate. There is no abnormal postcontrast enhancement. There is mild grade 1 retrolisthesis of L5 on S1. The alignment is otherwise maintained. There is no loss of vertebral body height. There is posterior fusion decompression of L5-S1. There is disc space narrowing and disc desiccation and reactive endplate changes of L5/S1. Other disc spaces are maintained and the discs are hydrated. Question tiny bone island of the L1 vertebral body. There is no suspicious T1 marrow signal abnormality. Conus medullaris is normal in signal intensity and appearance, terminates at the level of L1. L1/L2: Unremarkable. L2/L3: No significant spondylitic disc. There is moderate facet hypertrophy. There is ligamentum flavum redundancy. The central canal and neural foramina are patent. L3/L4: There is minimal broad-based posterior disc bulge. There is moderate facet hypertrophy and ligamentum flavum redundancy. Prominent posterior epidural fat. Mild central canal stenosis. There is mild left and no significant right neural foraminal narrowing. L4/L5: There is small broad-based posterior disc bulge and moderate facet hypertrophy and ligamentum flavum redundancy. There is narrowing of the right lateral recess. There is mild central canal stenosis. Mild bilateral neural foraminal narrowing. L5/S1: There is posterior decompression. The central canal is widely patent. There is no significant neural foraminal narrowing. Limited visualization of the retroperitoneum is unremarkable. There is no abnormal postcontrast enhancement. IMPRESSION: 1. No acute fracture or malalignment of the thoracic or lumbar spine. 2. There is no high-grade central canal stenosis or neural foraminal narrowing. 3. There is no abnormal intrathecal enhancement. Electronically signed by: Pepe Duong MD (05/14/2020 1:18 AM) [facility] Discharge Information Condition at Discharge: Improved Follow Up: Weeks Disposition/Orders: D/C to Home Scheduled Amlodipine Besylate (Norvasc) 10 Mg Tablet, 10 MG PO DAILY for hypertension, (Reported) Entered as Reported by: JAMES NEGRO on 05/14/20518 Last Action: Continued on 05/14/201016 by TAVIA IRIZARRY MD Duloxetine Hcl (Cymbalta) 20 Mg Capsule.dr, 20 MG PO DAILY for chronic back pain for 30 Days, #30 Prescribed by: TAVIA IRIZARRY MD on 05/15/20 0943 Gabapentin (Gabapentin) 800 Mg Tablet, 300 MG PO BID for NEUROGENIC PAIN, (Reported) Entered as Reported by: JMAES NEGRO on 05/14/20518 Last Action: Converted on 05/14/201016 by TAVIA IRIZARRY MD Gabapentin (Gabapentin) 800 Mg Tablet, 400 MG PO HS for NEUROGENIC PAIN, (Reported) Entered as Reported by: JAMES NEGRO on 05/14/20518 Last Action: Converted on 05/14/201016 by TAVIA IRIZARRY MD Meloxicam (Mobic) 7.5 Mg Tablet, 7.5 MG PO BID for back pain for 30 Days, #30 Prescribed by: TAVIA IRIZARRY MD on 05/15/20 0943 Prednisone (Prednisone) 50 Mg Tablet, 1 TAB PO DAILY for anti inflammatory, #5 Prescribed by: TAVIA IRIZARRY MD on 05/15/20 0945 Scheduled PRN Tizanidine Hcl (Tizanidine Hcl) 2 Mg Capsule, 2 MG PO QID PRN for MUSCLE SPASMS for 30 Days, #60 Prescribed by: TAVIA IRIZARRY MD on 05/15/20 0943 Justicifation of Admission Dx: Justifications for Admission: Justification of Admission Dx: Yes TAVIA IRIZARRY MD May 15, 2020 09:51
[2020-05-15 10:30] VITALS: BP 134/84
--- NOTE | 2020-05-15 11:55 | NUR ---
Discharge Note: EFREN ORTIZ Discharge instructions and discharge home medications reviewed with Patient and a copy given. All questions have been answered and understanding verbalized. Patient given instructions and handouts on new medications: cymbalta, meloxicam, and prednisone. Discontinued lines and drains: Peripheral IV intact. Patient discharged to Home or Self Care with Self via [facility]
== END 2020-05-15 11:55 | disposition home or self-care (01) | DRG 552 ==
LOC: ER 21:24 → 2 SOUTH 05-14 02:33 → OBSVTOIN 05-14 02:34
PROVIDERS: ADMIT Family Medicine; ATTEND Family Medicine
DX: M54.30 Sciatica, unspecified side (principal); M54.9 Dorsalgia, unspecified; G89.29 Other chronic pain; I10 Essential (primary) hypertension; J45.909 Unspecified asthma, uncomplicated; Z88.6 Allergy status to analgesic agent; Z88.1 Allergy status to other antibiotic agents; Z90.49 Acquired absence of other specified parts of digestive tract; R20.2 Paresthesia of skin
CPT/HCPCS: 36415; 72157; 72158; 80048; 80053; 85025; 86140; 96374; 96375; 96376; 99285; A9575; G0379; J1100; J2060; J2270; 97110-GP; G0378